=== PATIENT | male | born 1960 | race Caucasian/White ===

== ENCOUNTER → 2016-08-08 | Outpatient (CLI) | payer BC ==
[2016-08-08 14:42] LABS: CHLORIDE,CL 105 mmol/L (98-110); SODIUM,NA 137 mmol/L (136-146)
== END ==
LOC: MW.CHFP 13:59
PROVIDERS: ATTEND Emergency Medicine
DX: Z12.5 Encounter for screening for malignant neoplasm of prostate (principal); I10 Essential (primary) hypertension
CPT/HCPCS: 36415; 80053; 80061; G0103

== ENCOUNTER 2017-05-10 18:06 | Observation (INO) | payer BC ==
[2017-05-10] MEDS ORDERED: Diltiazem 25 MG/5 ML SDV IVPUSH ONE (19:08)
[2017-05-10 19:30] LABS: CHLORIDE,CL 104 mmol/L (98-110); SODIUM,NA 139 mmol/L (136-146)
[2017-05-10] MEDS ORDERED: Sodium Chloride 0.9% 1,000 ML IV ONE (19:36)
[2017-05-10] MEDS ORDERED: Potassium Chloride 20 MEQ Tab.ER PO ONE (19:59)
[2017-05-10] MEDS ORDERED: Magnesium Sulfate/Water 2 GM in Premix Bag 1 BAG IV ONE (19:59)
[2017-05-10] MEDS ORDERED: Ondansetron 4 MG/2 ML SDV IVPUSH PRN (20:09)
--- NOTE | 2017-05-10 20:15 | PCM.HP ---
H&P History of Present Illness - General Admit Problem/Dx: Admission Diagnosis/Problem Admission Diagnosis/Problem Tachycardia - History of Present Illness Initial Comments - Free Text/Narative: 57 yo male with pmh of hypertension who presented with complaint of palpitations. He reports having palpitations on and off for the past several years. Some months it occurs every day but does not last for very long. The palpitations that occurred tonight did not go away prompting him to come to the ED. In the ED he was noted to have a supraventricular tachycardia that was alternating with a normal sinus rhythm. He was given diltiazem IV and has since not gone back to SVT. He denies any shortness of breath or chest pain. - Related Data Allergies/Adverse Reactions: Allergies Allergy/AdvReac Type Severity Reaction Status Date / Time Sulfa (Sulfonamide Allergy Tachycardia Verified 05/10/17 18:27 Antibiotics) oranges Allergy Itching Uncoded 05/10/17 18:27 Home Medications: Home Meds Lisinopril 10 mg PO DAILY 05/27/14 [History] Magnesium 30 mg PO DAILY 05/27/14 [History] Potassium 99 mg PO BID 05/27/14 [History] Spironolactone [Aldactone] 25 mg PO DAILY 05/27/14 [History] Metoprolol Tartrate [Lopressor] 25 mg PO Q12HR #60 tablet 05/11/17 [Rx] Past Medical History Cardiovascular History: Reports: High Cholesterol, Hypertension Genitourinary History: Reports: Renal Calculus Musculoskeletal History: Reports: Back Pain, Chronic, Other (See Below) Other Musculoskeletal History: bulging disc to back - Infectious Disease History Infectious Disease History: Reports: Chicken Pox, Mumps - Past Surgical History Male Surgical History: Reports: Renal Calculus Musculoskeletal Surgical History: Reports: Shoulder Surgery Other Musculoskeletal Surgeries/Procedures:: right shoulder Social & Family History - Tobacco Use Smoking Status *Q: Never Smoker Second Hand Smoke Exposure: No - Caffeine Use Caffeine Use: Reports: Energy Drinks, Soda - Alcohol Use Days Per Week of Alcohol Use: 0 Number of Drinks Per Day: 1 Total Drinks Per Week: 0 - Recreational Drug Use Recreational Drug Use: No H&P Review of Systems - Review of Systems: Review Of Systems: ROS reveals no pertinent complaints other than HPI. Exam - Exam Exam: See Below - Vital Signs Vital Signs: Last Vital Signs Temp 37.6 C 05/10/17 19:55 Pulse 86 05/10/17 19:55 Resp 15 05/10/17 19:55 BP 154/80 H 05/10/17 19:55 Pulse Ox 96 05/10/17 19:55 Weight: 82.6 kg - Exam General: Alert, Oriented HEENT: Mucosa Moist & [place] Lungs: Clear to Auscultation, Normal Respiratory Effort Cardiovascular: Regular Rate, Regular Rhythm GI/Abdominal Exam: Soft, Non-Tender Extremities: Non-Tender, No Pedal Edema Skin: Warm, Dry, Intact Neurological: No: Focal Deficit - Patient Data Lab Results Last 24 hrs: Laboratory Results - last 24 hr 05/10/17 05/10/17 05/10/17 Range/Units 18:53 18:53 18:53 WBC 6.74 (4.0-11.0) K/uL RBC 5.04 (4.50-5.90) M/uL Hgb 15.3 (13.0-17.0) g/dL Hct 44.0 (38.0-50.0) % MCV 87.3 (80.0-98.0) fL MCH 30.4 (27.0-32.0) pg MCHC 34.8 (31.0-37.0) g/dL RDW Std Deviation 42.1 (28.0-62.0) fl RDW Coeff of Anita 13 (11.0-15.0) % Plt Count 217 (150-400) K/uL MPV 10.10 (7.40-12.00) fL Neut % (Auto) 75.8 (48.0-80.0) % Lymph % (Auto) 15.7 L (16.0-40.0) % [place] % (Auto) 7.9 (0.0-15.0) % Eos % (Auto) 0.3 (0.0-7.0) % Baso % (Auto) 0.3 (0.0-1.5) % Neut # (Auto) 5.1 (1.4-5.7) K/uL Lymph # (Auto) 1.1 (0.6-2.4) K/uL [place] # (Auto) 0.5 (0.0-0.8) K/uL Eos # (Auto) 0.0 (0.0-0.7) K/uL Baso # (Auto) 0.0 (0.0-0.1) K/uL Nucleated RBC % 0.0 /100WBC Nucleated RBCs # 0 K/uL INR 1.00 (0.86-1.11) Sodium 139 (136-146) mmol/L Potassium 3.8 (3.5-5.1) mmol/L Chloride 104 (98-110) mmol/L Carbon Dioxide 22 (21-31) mmol/L BUN 11 (6.0-23.0) mg/dL Creatinine 0.9 (0.6-1.5) mg/dL Est Cr Clr Drug Dosing 90.56 mL/min Estimated GFR (MDRD) > 60.0 ml/min Glucose 84 (60-110) mg/dL Calcium 9.4 (8.8-10.8) mg/dL Magnesium (1.5-2.3) mEq/L Total Bilirubin 1.3 (0.1-1.5) mg/dL AST 21 (5-40) IU/L ALT 24 (8-54) IU/L Alkaline Phosphatase 73 (40-150) Troponin I < 0.10 (0.0-0.29) NG/ML Total Protein 7.2 (6.0-8.0) g/dL Albumin 4.5 (3.5-5.0) g/dL Globulin 2.7 (2.0-3.5) g/dL Albumin/Globulin Ratio 1.7 (1.3-2.8) TSH 3rd Generation 1.70 (0.47-5.0) uIU/mL 05/10/17 Range/Units 18:53 WBC (4.0-11.0) K/uL RBC (4.50-5.90) M/uL Hgb (13.0-17.0) g/dL Hct (38.0-50.0) % MCV (80.0-98.0) fL MCH (27.0-32.0) pg MCHC (31.0-37.0) g/dL RDW Std Deviation (28.0-62.0) fl RDW Coeff of Anita (11.0-15.0) % Plt Count (150-400) K/uL MPV (7.40-12.00) fL Neut % (Auto) (48.0-80.0) % Lymph % (Auto) (16.0-40.0) % [place] % (Auto) (0.0-15.0) % Eos % (Auto) (0.0-7.0) % Baso % (Auto) (0.0-1.5) % Neut # (Auto) (1.4-5.7) K/uL Lymph # (Auto) (0.6-2.4) K/uL [place] # (Auto) (0.0-0.8) K/uL Eos # (Auto) (0.0-0.7) K/uL Baso # (Auto) (0.0-0.1) K/uL Nucleated RBC % /100WBC Nucleated RBCs # K/uL INR (0.86-1.11) Sodium (136-146) mmol/L Potassium (3.5-5.1) mmol/L Chloride (98-110) mmol/L Carbon Dioxide (21-31) mmol/L BUN (6.0-23.0) mg/dL Creatinine (0.6-1.5) mg/dL Est Cr Clr Drug Dosing mL/min Estimated GFR (MDRD) ml/min Glucose (60-110) mg/dL Calcium (8.8-10.8) mg/dL Magnesium 1.7 (1.5-2.3) mEq/L Total Bilirubin (0.1-1.5) mg/dL AST (5-40) IU/L ALT (8-54) IU/L Alkaline Phosphatase (40-150) Troponin I (0.0-0.29) NG/ML Total Protein (6.0-8.0) g/dL Albumin (3.5-5.0) g/dL Globulin (2.0-3.5) g/dL Albumin/Globulin Ratio (1.3-2.8) TSH 3rd Generation (0.47-5.0) uIU/mL Result Diagrams: 05/10/17 18:53 05/11/17 01:58 *Q Meaningful Use (ADM) - VTE *Q VTE Criteria *Q: - Stroke *Q Stroke Criteria *Q: - AMI *Q AMI Criteria *Q: Problem List Initiated/Reviewed/Updated: Yes Orders Last 24hrs: Active Orders 24 hr Category Date Time Status Patient Status [ADT] Stat ADT 05/10/17 19:51 Active Antiembolic Devices [RC] PER UNIT ROUTINE Care 05/10/17 20:09 Ordered EKG Documentation Completion [RC] STAT Care 05/10/17 18:39 Active EKG Documentation Completion [RC] STAT Care 05/10/17 19:22 Active Oxygen Therapy [RC] PRN Care 05/10/17 20:09 Ordered Up ad Shi [RC] ASDIRECTED Care 05/10/17 20:09 Ordered VTE/DVT Education [RC] PER UNIT ROUTINE Care 05/10/17 20:09 Ordered Vital Signs [RC] Q4H Care 05/10/17 20:09 Ordered Regular Diet [DIET] Diet 05/10/17 Breakfast Ordered BASIC METABOLIC PANEL,BMP [CHEM] AM Lab 05/11/17 05:11 Ordered MAGNESIUM [CHEM] AM Lab 05/11/17 05:11 Ordered Magnesium Sulfate/Water [Magnesium Sulfate 2 GM in Med 05/10/17 19:59 Ordered Water 50 ML] 2 gm Premix Bag 1 bag IV ONETIME Metoprolol Tartrate [Lopressor] Med 05/10/17 21:00 Ordered 25 mg PO Q12HR Ondansetron [Zofran] Med 05/10/17 20:09 Ordered 4 mg IVPUSH Q4H PRN Sodium Chloride 0.9% [Normal Saline] 1,000 ml Med 05/10/17 19:36 Active IV STAT Sequential Compression Device [OM.PC] Per Unit Routine Oth 05/10/17 20:09 Ordered Resuscitation Status Routine Resus Stat 05/10/17 20:09 Ordered Medication Orders Sodium Chloride (Normal Saline) 1,000 mls @ 999 mls/hr IV STAT ONE Stop: 05/10/17 20:36 Last Admin: 05/10/17 19:32 Dose: 999 mls/hr Magnesium Sulfate 2 gm/ Premix 50 mls @ 50 mls/hr IV ONETIME ONE Stop: 05/10/17 20:58 Metoprolol Tartrate (Lopressor) 25 mg PO Q12HR [facility] Assessment/Plan Comment:: 57 yo male admitted for SVT, he has since converted to normal sinus rhythm. He was monitored overnight on telemetry with no events. He is to be discharged home with the addition of metoprolol 25mg BID to his medications. He is to follow up with Dr. Bergman next week and a referral to Dr. Higgins was made.
[2017-05-10] MEDS: Metoprolol Tartrate 25 MG Tab PO SCH (21:57)
[2017-05-11 07:12] LABS: CHLORIDE,CL 107 mmol/L (98-110); SODIUM,NA 139 mmol/L (136-146)
[2017-05-11 09:49] VITALS: BP 137/61
[2017-05-11] MEDS: Metoprolol Tartrate 25 MG Tab PO SCH (09:50)
--- NOTE | 2017-05-11 21:48 | EDM.PDOC ---
ED HPI GENERAL MEDICAL PROBLEM - General Chief Complaint: Gastrointestinal Problem Stated Complaint: HEART FLUTTERING, INDIGESTION Time Seen by Provider: 05/10/17 18:50 Source of Information: Reports: Patient History Limitations: Reports: No Limitations - History of Present Illness INITIAL COMMENTS - FREE TEXT/NARRATIVE: HISTORY AND PHYSICAL: History of present illness: [Patient comes to the emergency room complaining of a sensation of indigestion. It's been coming and going for the past several days growing and in frequency and intensity. When he gets the sensation of indigestion he feels a fluttering sensation in his left neck and chest. Is worsened over the past several days. He states that he has had episodes of palpitations for the last year and his PCP Dr. Zimmer aware of this. They've not lasted very long until this point. Over the last couple of days and lasting longer and becoming more annoying to him. He denies chest pain shortness of breath and difficulty breathing. He has no abdominal pain nausea or vomiting. No pain in his back jaw and neck shoulder or down his arms. No pain or swelling to his lower legs.] Review of systems: As per history of present illness and below otherwise all systems reviewed and negative. Past medical history: As per history of present illness and as reviewed below otherwise noncontributory. Surgical history: As per history of present illness and as reviewed below otherwise noncontributory. Social history: No reported history of drug or alcohol abuse. Family history: As per history of present illness and as reviewed below otherwise noncontributory. Physical exam: HEENT: Atraumatic, normocephalic. Lungs: Clear to auscultation, breath sounds equal bilaterally. Heart: S1S2, rate is irregular. Abdomen: Soft, nondistended, nontender. Genitourinary: Deferred. Rectal: Deferred. Extremities: Atraumatic, negative for cords or calf pain. Cyanosis or edema to feet or lower legs. Neurovascular unremarkable. Neuro: Awake, alert, oriented. Motor and sensory unremarkable throughout. Exam nonfocal. Diagnostics: [CBC, CMP, EKG, chest x-ray, INR/PT/PTT, magnesium, troponin, TSH] Therapeutics: [Cardizem 10 mg IV] Impression: [SVT Hypertension] Plan: [Patient's labs are completely normal. EKG alternates between normal sinus and SVT. Cardizem completely converts patient. Patient's condition is reviewed with Dr. Bates who agrees to accept patient for observation.] Definitive disposition and diagnosis as appropriate pending reevaluation and review of above. - Related Data Allergies Allergy/AdvReac Type Severity Reaction Status Date / Time Sulfa (Sulfonamide Allergy Tachycardia Verified 05/10/17 18:27 Antibiotics) oranges Allergy Itching Uncoded 05/10/17 18:27 Home Meds: Home Meds Lisinopril 10 mg PO DAILY 05/27/14 [History] Magnesium 30 mg PO DAILY 05/27/14 [History] Potassium 99 mg PO BID 05/27/14 [History] Spironolactone [Aldactone] 25 mg PO DAILY 05/27/14 [History] Metoprolol Tartrate [Lopressor] 25 mg PO Q12HR #60 tablet 05/11/17 [Rx] Past Medical History Cardiovascular History: Reports: High Cholesterol, Hypertension Genitourinary History: Reports: Renal Calculus Musculoskeletal History: Reports: Back Pain, Chronic, Other (See Below) Other Musculoskeletal History: bulging disc to back - Infectious Disease History Infectious Disease History: Reports: Chicken Pox, Mumps - Past Surgical History Male Surgical History: Reports: Renal Calculus Musculoskeletal Surgical History: Reports: Shoulder Surgery Other Musculoskeletal Surgeries/Procedures:: right shoulder Social & Family History - Tobacco Use Smoking Status *Q: Never Smoker Second Hand Smoke Exposure: No - Caffeine Use Caffeine Use: Reports: Energy Drinks, Soda - Alcohol Use Days Per Week of Alcohol Use: 0 Number of Drinks Per Day: 1 Total Drinks Per Week: 0 - Recreational Drug Use Recreational Drug Use: No ED ROS GENERAL - Review of Systems Review Of Systems: ROS reveals no pertinent complaints other than HPI. ED EXAM, GENERAL - Physical Exam Exam: See Below GI/Abdominal: Soft, Non-Tender Extremities: Non-Tender, No Pedal Edema Course - Vital Signs Last Recorded V/S: Last Vital Signs Temp 98.5 F 05/11/17 09:00 Pulse 78 05/11/17 09:50 Resp 16 05/11/17 09:00 BP 137/61 05/11/17 09:50 Pulse Ox 96 05/11/17 09:00 - Orders/Labs/Meds Labs: Laboratory Tests 05/10/17 05/10/17 05/10/17 Range/Units 18:53 18:53 18:53 WBC 6.74 (4.0-11.0) K/uL RBC 5.04 (4.50-5.90) M/uL Hgb 15.3 (13.0-17.0) g/dL Hct 44.0 (38.0-50.0) % MCV 87.3 (80.0-98.0) fL MCH 30.4 (27.0-32.0) pg MCHC 34.8 (31.0-37.0) g/dL RDW Std Deviation 42.1 (28.0-62.0) fl RDW Coeff of Anita 13 (11.0-15.0) % Plt Count 217 (150-400) K/uL MPV 10.10 (7.40-12.00) fL Neut % (Auto) 75.8 (48.0-80.0) % Lymph % (Auto) 15.7 L (16.0-40.0) % [place] % (Auto) 7.9 (0.0-15.0) % Eos % (Auto) 0.3 (0.0-7.0) % Baso % (Auto) 0.3 (0.0-1.5) % Neut # (Auto) 5.1 (1.4-5.7) K/uL Lymph # (Auto) 1.1 (0.6-2.4) K/uL [place] # (Auto) 0.5 (0.0-0.8) K/uL Eos # (Auto) 0.0 (0.0-0.7) K/uL Baso # (Auto) 0.0 (0.0-0.1) K/uL Nucleated RBC % 0.0 /100WBC Nucleated RBCs # 0 K/uL INR 1.00 (0.86-1.11) Sodium 139 (136-146) mmol/L Potassium 3.8 (3.5-5.1) mmol/L Chloride 104 (98-110) mmol/L Carbon Dioxide 22 (21-31) mmol/L BUN 11 (6.0-23.0) mg/dL Creatinine 0.9 (0.6-1.5) mg/dL Est Cr Clr Drug Dosing 90.56 mL/min Estimated GFR (MDRD) > 60.0 ml/min Glucose 84 (60-110) mg/dL Calcium 9.4 (8.8-10.8) mg/dL Magnesium (1.5-2.3) mEq/L Total Bilirubin 1.3 (0.1-1.5) mg/dL AST 21 (5-40) IU/L ALT 24 (8-54) IU/L Alkaline Phosphatase 73 (40-150) Troponin I < 0.10 (0.0-0.29) NG/ML Total Protein 7.2 (6.0-8.0) g/dL Albumin 4.5 (3.5-5.0) g/dL Globulin 2.7 (2.0-3.5) g/dL Albumin/Globulin Ratio 1.7 (1.3-2.8) TSH 3rd Generation 1.70 (0.47-5.0) uIU/mL 05/10/17 Range/Units 18:53 WBC (4.0-11.0) K/uL RBC (4.50-5.90) M/uL Hgb (13.0-17.0) g/dL Hct (38.0-50.0) % MCV (80.0-98.0) fL MCH (27.0-32.0) pg MCHC (31.0-37.0) g/dL RDW Std Deviation (28.0-62.0) fl RDW Coeff of Anita (11.0-15.0) % Plt Count (150-400) K/uL MPV (7.40-12.00) fL Neut % (Auto) (48.0-80.0) % Lymph % (Auto) (16.0-40.0) % [place] % (Auto) (0.0-15.0) % Eos % (Auto) (0.0-7.0) % Baso % (Auto) (0.0-1.5) % Neut # (Auto) (1.4-5.7) K/uL Lymph # (Auto) (0.6-2.4) K/uL [place] # (Auto) (0.0-0.8) K/uL Eos # (Auto) (0.0-0.7) K/uL Baso # (Auto) (0.0-0.1) K/uL Nucleated RBC % /100WBC Nucleated RBCs # K/uL INR (0.86-1.11) Sodium (136-146) mmol/L Potassium (3.5-5.1) mmol/L Chloride (98-110) mmol/L Carbon Dioxide (21-31) mmol/L BUN (6.0-23.0) mg/dL Creatinine (0.6-1.5) mg/dL Est Cr Clr Drug Dosing mL/min Estimated GFR (MDRD) ml/min Glucose (60-110) mg/dL Calcium (8.8-10.8) mg/dL Magnesium 1.7 (1.5-2.3) mEq/L Total Bilirubin (0.1-1.5) mg/dL AST (5-40) IU/L ALT (8-54) IU/L Alkaline Phosphatase (40-150) Troponin I (0.0-0.29) NG/ML Total Protein (6.0-8.0) g/dL Albumin (3.5-5.0) g/dL Globulin (2.0-3.5) g/dL Albumin/Globulin Ratio (1.3-2.8) TSH 3rd Generation (0.47-5.0) uIU/mL Meds: Medications Discontinued Medications Generic Name Dose Route Start Last Admin Trade Name Freq PRN Reason Stop Dose Admin Diltiazem HCl 10 mg 05/10/17 19:08 05/10/17 19:27 Diltiazem IVPUSH 05/10/17 19:09 10 mg ONETIME ONE Administration Sodium Chloride 1,000 mls @ 999 mls/hr 05/10/17 19:36 05/10/17 19:32 Normal Saline IV 05/10/17 20:36 999 mls/hr STAT ONE Administration Magnesium Sulfate 2 gm/ Premix 50 mls @ 50 mls/hr 05/10/17 19:59 05/10/17 22: 14 IV 05/10/17 20:58 50 mls/hr ONETIME ONE Administration Metoprolol Tartrate 25 mg 05/10/17 21:00 05/11/17 09:50 Lopressor PO 25 mg Q12HR JOSE C Administration Ondansetron HCl 4 mg 05/10/17 20:09 Zofran IVPUSH Q4H PRN Nausea Potassium Chloride 40 meq 05/10/17 19:59 05/10/17 21:57 Klor-Con M20 PO 05/10/17 20:00 40 meq ONETIME ONE Administration Departure - Departure Time of Disposition: 19:51 Disposition: Admitted As Inpatient 66 Condition: Good Clinical Impression: Tachycardia
== END 2017-05-11 13:55 | disposition home or self-care (01) ==
LOC: MW.ED 18:06 → MW.MS 19:51
PROVIDERS: ADMIT Internal Medicine; ATTEND Internal Medicine
DX: I47.1 Supraventricular tachycardia (principal); I10 Essential (primary) hypertension; E78.00 Pure hypercholesterolemia, unspecified; Z88.2 Allergy status to sulfonamides; Z91.018 Allergy to other foods; Z79.899 Other long term (current) drug therapy; Z87.442 Personal history of urinary calculi
CPT/HCPCS: 36415; 80048; 80053; 83735; 84443; 84484; 85025; 85610; 93005; 96361; 96374; 99285; A9270; J3475; J3490; J7040; 96375; 99284; G0378

== ENCOUNTER 2020-03-15 10:32 | Day surgery (SDC) | payer BC ==
[~2020-03-15 10:32] MED LIST: Lactated Ringers 1,000 ML IV SCH; Lidocaine 2% 5 ML SDV ONE; Propofol 200 MG/20 ML SDV ONE; Sodium Chloride 0.9% 10 ML SDV IV PRN; Sodium Chloride 0.9% 10 ML Syringe FLUSH PRN; Sodium Chloride 0.9% 2.5 ML Syringe FLUSH PRN; fentaNYL 100 MCG/2 ML SDV ONE
--- NOTE | 2020-03-15 11:33 | PCM.PREANE ---
Preanesthetic Assessment - Anesthesia/Transfusion/Family Hx Anesthesia History: Prior Anesthesia Without Reaction Family History of Anesthesia Reaction: No Transfusion History: Prior Transfusion Without Reaction Intubation History: Unknown - Review of Systems General: No Symptoms Pulmonary: No Symptoms Cardiovascular: No Symptoms ( ) Neurological: No Symptoms Other: Reports: None - Physical Assessment Height: 5 ft 9 in Weight: 86.636 kg ASA Class: 2 Mental Status: Alert & Oriented x3 Airway Class: Mallampati = 2 Dentition: Reports: Normal Dentition, [place](s) (multiple upper and lower (about 8 total)) Thyro-Mental Finger Breadths: 3 Mouth Opening Finger Breadths: 3 ROM/Head Extension: Full Lungs: Clear to Auscultation, Normal Respiratory Effort Cardiovascular: Regular Rate, Regular Rhythm, Other (mitral valve murmer) - Allergies Allergies/Adverse Reactions: Allergies Allergy/AdvReac Type Severity Reaction Status Date / Time Sulfa (Sulfonamide Allergy Tachycardia Verified 03/09/20 12:12 Antibiotics) oranges Allergy Itching Uncoded 03/09/20 12:12 - Blood Blood Available: No - Anesthesia Plan Pre-Op Medication Ordered: None - Acknowledgements Anesthesia Type Planned: MAC Pt an Appropriate Candidate for the Planned Anesthesia: Yes Alternatives and Risks of Anesthesia Discussed w Pt/Guardian: Yes Pt/Guardian Understands and Agrees with Anesthesia Plan: Yes PreAnesthesia Questionnaire HEENT History: Reports: Other (See Below) Other HEENT History: wears glasses Cardiovascular History: Reports: Heart Murmur (mitral valve regurgitation on cardiac ECHO in ), High Cholesterol, Hypertension, Other (See Below) (paroxysmal SVT controlled with metoprolol, short episode 10-15 sec. almost daily x1) Respiratory History: Reports: None Gastrointestinal History: Reports: Diverticulosis, GERD Other Gastrointestinal History: hx diverticulitis Genitourinary History: Reports: Renal Calculus Musculoskeletal History: Reports: Arthritis, Back Pain, Chronic, Other (See Below) Other Musculoskeletal History: bulging disc to back Neurological History: Reports: None Psychiatric History: Reports: None Endocrine/Metabolic History: Reports: None Hematologic History: Reports: Blood Transfusion(s) Immunologic History: Reports: None Oncologic (Cancer) History: Reports: None Dermatologic History: Reports: None - Infectious Disease History Infectious Disease History: Reports: Chicken Pox, Mumps - Past Surgical History GI Surgical History: Reports: Colonoscopy ( in [facility]) Male Surgical History: Reports: Renal Calculus, Other (See Below) (exc. of spermatocele with epididimectomy) Other Musculoskeletal Surgeries/Procedures:: right shoulder - SUBSTANCE USE Tobacco Use Status *Q: Never Tobacco User - HOME MEDS Home Medications: Home Meds Lisinopril 10 mg PO DAILY 05/27/14 [History] Spironolactone [Aldactone] 25 mg PO DAILY 05/27/14 [History] Aspirin [Adult Aspirin Regimen] 81 mg PO DAILY 03/09/20 [History] Cyanocobalamin (Vitamin B-12) [Vitamin B12] 2,500 mcg PO DAILY 03/09/20 [History] Hydrocortisone Acetate [Anusol-Hc] 1 supp RECTAL ASDIRECTED PRN 03/09/20 [History] Magnesium Oxide 400 mg PO BID 03/09/20 [History] Metoprolol Tartrate [Lopressor] 25 mg PO DAILY 03/09/20 [History] Omeprazole 20 mg PO DAILY PRN 03/09/20 [History] Potassium Chloride 20 meq PO BID 03/09/20 [History] Pravastatin [Pravachol] 20 mg PO DAILY 03/09/20 [History] - CURRENT (IN HOUSE) MEDS Current Meds: Current Medications Lactated Ringer's (Ringers, Lactated) 1,000 mls @ 125 mls/hr IV ASDIRECTED JOSE C Sodium Chloride (Saline Flush) 10 ml FLUSH ASDIRECTED PRN PRN Reason: Keep Vein Open Sodium Chloride (Saline Flush) 2.5 ml FLUSH ASDIRECTED PRN PRN Reason: Keep Vein Open Sodium Chloride (Saline Flush) 10 ml FLUSH ASDIRECTED PRN PRN Reason: Keep Vein Open Sodium Chloride (Saline Flush) 2.5 ml FLUSH ASDIRECTED PRN PRN Reason: Keep Vein Open Sodium Chloride (Normal Saline) 10 ml IV ASDIRECTED PRN PRN Reason: IV Use Discontinued Medications Fentanyl (Sublimaze) Confirm Administered Dose 100 mcg .ROUTE .STK-MED ONE Stop: 03/15/20 10:29 Lidocaine (Xylocaine-Mpf 2%) Confirm Administered Dose 5 ml .ROUTE .STK-MED ONE Stop: 03/15/20 10:29 Propofol (Diprivan 20 Ml) Confirm Administered Dose 200 mg .ROUTE .STK-MED ONE Stop: 03/15/20 10:29
[2020-03-15] MEDS ORDERED: Midazolam 1 MG/ML 2 ML SDV ONE (11:38)
[2020-03-15] MEDS ORDERED: Glycopyrrolate 0.2 MG/ML SDV ONE (11:38)
[2020-03-15] MEDS ORDERED: Propofol 200 MG/20 ML SDV ONE (11:39)
--- NOTE | 2020-03-15 12:07 | PCM.POSTAN ---
POST ANESTHESIA ASSESSMENT - MENTAL STATUS Mental Status: Alert, Oriented - VITAL SIGNS Vital Signs: Last Vital Signs Temp 37.0 C 03/15/20 11:49 Pulse 63 03/15/20 12:05 Resp 10 L 03/15/20 12:05 BP 122/67 03/15/20 12:05 Pulse Ox 95 03/15/20 12:05 - RESPIRATORY Respiratory Status: Respiratory Rate WNL, Airway Patent, O2 Saturation Stable - CARDIOVASCULAR CV Status: Pulse Rate WNL, Blood Pressure Stable - GASTROINTESTINAL GI Status: No Symptoms - PAIN Pain Score: 0 - POST OP HYDRATION Hydration Status: Adequate & Stable - OBSERVATIONS Free Text/Narrative:: No anesthesia problems
--- NOTE | 2020-03-15 12:31 | PCM48HPAN ---
Post Anesthesia Note - EVALUATION WITHIN 48HRS OF ANESTHETIC Vital Signs in Normal Range: Yes Patient Participated in Evaluation: Yes Respiratory Function Stable: Yes Airway Patent: Yes Cardiovascular Function Stable: Yes Hydration Status Stable: Yes Pain Control Satisfactory: Yes Nausea and Vomiting Control Satisfactory: Yes Mental Status Recovered: Yes Vital Signs: Last Vital Signs Temp 37.0 C 03/15/20 11:49 Pulse 63 03/15/20 12:05 Resp 10 L 03/15/20 12:05 BP 122/67 03/15/20 12:05 Pulse Ox 95 03/15/20 12:05 - COMMENTS/OBSERVATIONS Free Text/Narrative:: No anesthesia problems
--- NOTE | 2020-03-15 13:21 | PCM.OPNOTE ---
- General Post-Op/Procedure Note Date of Surgery/Procedure: 03/15/20 Operative Procedure(s): Diagnostic colonoscopy Findings: Mild inflammation along the sigmoid colon in association with diverticulosis Pre Op Diagnosis: Change in bowel habits Post-Op Diagnosis: Diverticulosis, non-specific colitis Anesthesia Technique: MAC Primary Surgeon: Myriam Lozano Condition: Good Free Text/Narrative:: Intake & Output 03/14/20 03/15/20 03/15/20 22:59 06:59 14:59 Intake Total 700 Balance 700
[2020-03-15 14:41] VITALS: BP 120/77; PULSE 60
--- NOTE | 2020-03-16 10:57 | OR ---
SURGEON: MYRIAM LOZANO MD DATE OF PROCEDURE: 03/15/2020 PREOPERATIVE DIAGNOSIS: Change in bowel habits. POSTOPERATIVE DIAGNOSES: 1. Diverticulosis. 2. Mild colitis. PROCEDURE PERFORMED: Diagnostic colonoscopy. PRIMARY SURGEON: Myriam Lozano MD ANESTHESIA: MAC. INSTRUMENT USED: Olympus colonoscope. EXTENT OF EXAM: To the cecum. PREPARATION: Good. LIMITATIONS: None. INDICATIONS FOR EXAMINATION: The patient is a 60-year-old male with known diverticulosis who presented to my clinic with a change in bowel habits. He had undergone a CT scan, which showed colonic diverticulosis without any evidence of diverticulitis. There was concern for asymmetric thickening of the rectum, which the radiologist mentioned could represent inflammatory changes or neoplasm. The patient underwent stool cultures, which were negative. The patient and I discussed the need for diagnostic colonoscopy. I explained the procedure, expected perioperative course, and risks. He verbalized understanding and wishes to proceed. PROCEDURE IN DETAIL: The patient was brought into the endoscopy suite and placed in a left lateral decubitus position. A time-out was completed verifying the patient's name, age, date of , allergies, and procedure to be performed. Monitored anesthesia care was induced and continuous oxygen was provided via nasal cannula throughout the procedure. After adequate sedation was achieved, a digital rectal exam was performed. This exam was within normal limits. A well-lubricated colonoscope was inserted in the rectum and advanced under direct visualization to the level of the cecum. The cecum was identified by both visual and anatomic landmarks. A photograph was taken of the cecal cap as well as with the scope retroflexed within the cecum. The scope was then fully withdrawn while examining the color, texture, anatomy, and integrity of the mucosa from the cecum to the anal canal. The patient was noted to have sigmoid diverticulosis. The mucosa between these diverticula did appear slightly injected. A biopsy was taken of one of these areas and sent to pathology, labeled as sigmoid colon biopsy. The scope was then brought into the rectum and retroflexed to allow visualization of the anal canal opening. No abnormalities were found in the rectum and the retroflexed view appeared normal as well. The scope was removed and the procedure was terminated. The cecum to anus time was 7 minutes. The patient tolerated the procedure well and was transferred to the PACU in stable condition. ENDOSCOPIC DIAGNOSES: 1. Diverticulosis. 2. Mild colitis. RECOMMENDATIONS: The patient and I visited in the postoperative care area. The patient may have had some nonspecific colitis prior to this scope. We will follow up on the biopsy results and visit with the patient more about this in clinic. At this time, the inflammation that I saw was very mild, and I do not feel he needs to be on antibiotics at this point in time. NAVI / DENNIS /[id number]
== END 2020-03-15 13:15 | disposition home or self-care (01) ==
LOC: MW.SDS 10:32
PROVIDERS: ATTEND Surgery
DX: K57.30 Diverticulosis of large intestine without perforation or abscess without bleeding (principal); K52.9 Noninfective gastroenteritis and colitis, unspecified; E78.00 Pure hypercholesterolemia, unspecified; I10 Essential (primary) hypertension; Z88.2 Allergy status to sulfonamides; Z88.1 Allergy status to other antibiotic agents; Z91.018 Allergy to other foods; Z79.899 Other long term (current) drug therapy; Z98.890 Other specified postprocedural states
CPT/HCPCS: 45380; J2001; J2250; J2704; J3010; J3490; J7120; 00811; 88305

== ENCOUNTER 2020-05-23 00:25 | Emergency (ER) | payer BC ==
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
[2020-05-23 01:04] VITALS: PULSE 55
[2020-05-23 01:37] VITALS: BP 122/65
== END 2020-05-23 01:10 | disposition home or self-care (01) ==
LOC: MW.ED 00:25
DX: I10 Essential (primary) hypertension (principal); R00.1 Bradycardia, unspecified; E78.00 Pure hypercholesterolemia, unspecified; K21.9 Gastro-esophageal reflux disease without esophagitis; M19.90 Unspecified osteoarthritis, unspecified site; Z88.2 Allergy status to sulfonamides; Z91.018 Allergy to other foods; Z79.899 Other long term (current) drug therapy; Z79.82 Long term (current) use of aspirin
CPT/HCPCS: 99282; 99283

== ENCOUNTER 2021-03-11 19:48 | Emergency (ER) | payer BC ==
[2021-03-11] MEDS ORDERED: Sodium Chloride 0.9% 2.5 ML Syringe FLUSH PRN (19:57)
[2021-03-11] MEDS ORDERED: Sodium Chloride 0.9% 10 ML Syringe FLUSH PRN (19:57)
[2021-03-11] MEDS ORDERED: Lactated Ringers 1,000 ML IV ONE (19:57)
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
[2021-03-11 20:32] LABS: BLOOD UREA NITROGEN,BUN 14 mg/dL (7.0-18.0); CARBON DIOXIDE,CO2 28.8 mmol/L (21.0-32.0); CHLORIDE,CL 105 mmol/L (98-107); GLUCOSE RANDOM 143 mg/dL (74-106); POTASSIUM,K 3.3 mmol/L (3.5-5.1); SODIUM,NA 139 mmol/L (136-148)
--- NOTE | 2021-03-11 21:09 | CR ---
INDICATION: Chest pain TECHNIQUE: Chest radiograph 1 view COMPARISON: 11/15/2020 FINDINGS: The sensitivity and specificity of the exam are moderately limited by the patient`s body habitus. Mediastinum: The mediastinum is normal in appearance. The heart silhouette is normal in size and morphology. Lung: Both lungs are unremarkable in appearance with small lung volumes. No sign of pleural effusion seen. No pneumothorax is identified. Bone and Soft tissue: Unremarkable for age. A right shoulder arthroplasty is partially seen. IMPRESSION: 1. No acute cardiopulmonary disease is seen. Dictated by: Dino Corona MD @ 03/11/2021 21:06:36 (Electronically Signed)
[2021-03-11 21:58] VITALS: BP 136/76; PULSE 76
== END 2021-03-11 21:58 | disposition home or self-care (01) ==
LOC: MW.ED 19:48
DX: R00.2 Palpitations (principal); E78.00 Pure hypercholesterolemia, unspecified; I10 Essential (primary) hypertension; K21.9 Gastro-esophageal reflux disease without esophagitis; Z88.2 Allergy status to sulfonamides; Z91.018 Allergy to other foods; Z88.1 Allergy status to other antibiotic agents; Z79.82 Long term (current) use of aspirin; Z79.01 Long term (current) use of anticoagulants; Z79.899 Other long term (current) drug therapy; Z20.822 Contact with and (suspected) exposure to COVID-19
CPT/HCPCS: 36415; 71045; 80053; 84484; 85025; 87635; 93005; 99285; J7120; U0002

== ENCOUNTER 2021-05-20 21:18 | Emergency (ER) | payer BC ==
[2021-05-20] MEDS ORDERED: diphenhydrAMINE 50 MG Cap PO ONE (22:10)
[2021-05-20] MEDS ORDERED: predniSONE 20 MG Tab PO ONE (22:10)
[2021-05-21 04:38] VITALS: BP 120/84; PULSE 64
== END 2021-05-20 22:40 | disposition home or self-care (01) ==
LOC: MW.ED 21:18
DX: D69.2 Other nonthrombocytopenic purpura (principal); T50.995A Adverse effect of other drugs, medicaments and biological substances, initial encounter; E78.00 Pure hypercholesterolemia, unspecified; I10 Essential (primary) hypertension; K21.9 Gastro-esophageal reflux disease without esophagitis; Z88.2 Allergy status to sulfonamides; Z88.1 Allergy status to other antibiotic agents; Z91.018 Allergy to other foods; Z79.82 Long term (current) use of aspirin; Z79.899 Other long term (current) drug therapy
CPT/HCPCS: 99282

== ENCOUNTER 2022-03-13 14:32 | Emergency (ER) | payer BC ==
[2022-03-13] MEDS ORDERED: Metoprolol Tartrate 25 MG Tab PO ONE (16:51)
[2022-03-13 17:24] LABS: POTASSIUM,K 4.5 mmol/L (3.5-5.1)
[2022-03-13 17:53] VITALS: BP 153/80; PULSE 61
== END 2022-03-13 17:54 | disposition home or self-care (01) ==
LOC: MW.ED 14:32
DX: I10 Essential (primary) hypertension (principal); E78.00 Pure hypercholesterolemia, unspecified; K21.9 Gastro-esophageal reflux disease without esophagitis; M19.90 Unspecified osteoarthritis, unspecified site; Z88.2 Allergy status to sulfonamides; Z91.018 Allergy to other foods; Z79.82 Long term (current) use of aspirin; Z79.899 Other long term (current) drug therapy
CPT/HCPCS: 36415; 80053; 81003; 85025; 93005; 99283

== ENCOUNTER 2023-10-07 11:17 | Emergency (ER) | payer BC ==
[2023-10-07] MEDS: Bacitracin Oint 1 GM U/D Packet TOP ONE (13:37)
[2023-10-07 13:55] VITALS: BP 130/80; PULSE 64
== END 2023-10-07 13:54 | disposition home or self-care (01) ==
LOC: MW.ED 11:17
DX: S00.03XA Contusion of scalp, initial encounter (principal); I10 Essential (primary) hypertension; E78.00 Pure hypercholesterolemia, unspecified; K21.9 Gastro-esophageal reflux disease without esophagitis; Z88.2 Allergy status to sulfonamides; Z91.041 Radiographic dye allergy status; Z91.018 Allergy to other foods; Z79.82 Long term (current) use of aspirin; Z79.899 Other long term (current) drug therapy; W22.8XXA Striking against or struck by other objects, initial encounter; Y93.01 Activity, walking, marching and hiking
CPT/HCPCS: 70450; 70450-26; 72125; 72125-26; 99282; 99283

== ENCOUNTER 2024-06-04 03:01 | Emergency (ER) | payer BC ==
[2024-06-04] MEDS: Sodium Chloride 0.9% 1,000 ML IV ONE (03:33)
[2024-06-04 03:42] LABS: BASOPHILS ABSOLUTE AUTO 0.04 K/uL (0.00-0.20); BASOPHILS PERCENT AUTO 0.7 % (0.0-1.0); EOSINOPHILS ABSOLUTE AUTO 0.06 K/uL (0.00-0.45); EOSINOPHILS PERCENT AUTO 1.1 % (0.0-6.0); HEMATOCRIT 43.7 % (42.0-52.0); IMMATURE GRAN ABSOLUTE AUTO 0.01 K/uL (0.00-0.05); IMMATURE GRAN PERCENT AUTO 0.2 % (0.0-0.4); LYMPHOCYTES ABSOLUTE AUTO 1.33 K/uL (1.00-4.80); LYMPHOCYTES PERCENT AUTO 23.8 % (24.0-44.0); MEAN CORPUSCULAR HEMOGLOBIN 29.8 pg (28.0-32.0); MEAN CORPUSCULAR HGB CONC 34.3 g/dL (32.0-36.0); MEAN CORPUSCULAR VOLUME 86.7 fL (83.0-99.0); MEAN PLATELET VOLUME 10.8 fL (9.4-12.4); MONOCYTES ABSOLUTE AUTO 0.66 K/uL (0.00-0.80); MONOCYTES PERCENT AUTO 11.8 % (0.0-8.0); NEUTROPHILS PERCENT AUTO 62.4 % (41.0-71.0); PLATELET COUNT,PLT 191 K/uL (150-400); RED BLOOD CELL COUNT 5.04 M/uL (4.52-5.90)
[2024-06-04 04:05] LABS: A/G RATIO 1.3 (0.9-1.6); ALBUMIN 3.9 g/dL (3.4-5.0); BILIRUBIN TOTAL 0.8 mg/dL (0.2-1.0); C-REACTIVE PROTEIN 0.33 mg/dL (<0.3); CALCIUM 8.8 mg/dL (8.5-10.1); CARBON DIOXIDE,CO2 25.2 mmol/L (21.0-32.0); EST CRCL DRUG DOSING (CG) 72.2 mL/min; MAGNESIUM 2.2 mg/dL (1.8-2.4); POTASSIUM,K 4.1 mmol/L (3.5-5.1); PROTEIN TOTAL,TP 6.9 g/dL (6.4-8.2)
[2024-06-04 04:41] LABS: APPEARANCE,URINE CLEAR
[2024-06-04 04:42] LABS: BILIRUBIN,URINE NEGATIVE (NEGATIVE); COLOR,URINE YELLOW; GLUCOSE,URINE NEGATIVE (NEGATIVE); KETONES,URINE 15 mg/dL (NEGATIVE); LEUKOCYTE ESTERASE,URINE NEGATIVE (NEGATIVE); NITRITE,URINE NEGATIVE (NEGATIVE); OCCULT BLOOD,URINE NEGATIVE (NEGATIVE); PH,URINE 6.5 (5.0-8.0); PROTEIN,URINE NEGATIVE (NEGATIVE); UROBILINOGEN,URINE 0.2 EU/dL (<2.0)
[2024-06-04 04:47] LABS: AMPHETAMINES SCREEN, URINE NEGATIVE (CUTOFF=500); BARBITURATE SCREEN,URINE NEGATIVE (CUTOFF=200); BENZODIAZEPINES SCREEN,URINE NEGATIVE (CUTOFF=150); BUPRENORPHINE SCREEN,URINE NEGATIVE (CUTOFF=10); METHADONE SCREEN, URINE NEGATIVE (CUTOFF=200); METHAMPHETAMINES SCREEN, URINE NEGATIVE (CUTOFF=500); OXYCODONE SCREEN,URINE NEGATIVE (CUT0FF=100); PCP SCREEN,URINE NEGATIVE (CUTOFF=25); THC SCREEN,URINE 20 NG/ML NEGATIVE (CUTOFF=50)
[2024-06-04 05:41] VITALS: BP 145/75; PULSE 52
== END 2024-06-04 05:32 | disposition home or self-care (01) ==
LOC: MW.ED 03:01
DX: R42 Dizziness and giddiness (principal); R20.8 Other disturbances of skin sensation; E86.0 Dehydration; T40.425A Adverse effect of tramadol, initial encounter; Z98.890 Other specified postprocedural states; I10 Essential (primary) hypertension; E78.00 Pure hypercholesterolemia, unspecified; K21.9 Gastro-esophageal reflux disease without esophagitis; M19.90 Unspecified osteoarthritis, unspecified site; Z88.2 Allergy status to sulfonamides; Z88.8 Allergy status to other drugs, medicaments and biological substances; Z91.018 Allergy to other foods; Z91.041 Radiographic dye allergy status; Z79.82 Long term (current) use of aspirin; Z79.899 Other long term (current) drug therapy
CPT/HCPCS: 36415; 71045; 80053; 80305; 81003; 83735; 85025; 85652; 86140; 93005; 96360; 99284; J7030

== ENCOUNTER 2025-03-11 06:05 | Emergency (ER) | payer MEDICARE, BC ==
[2025-03-11] MEDS ORDERED: Sodium Chloride 0.9% 2.5 ML Syringe FLUSH PRN (06:07)
[2025-03-11] MEDS ORDERED: Sodium Chloride 0.9% 10 ML Syringe FLUSH PRN (06:07)
[2025-03-11 06:23] LABS: BASOPHILS ABSOLUTE AUTO 0.05 K/uL (0.00-0.20); BASOPHILS PERCENT AUTO 0.6 % (0.0-1.0); EOSINOPHILS ABSOLUTE AUTO 0.09 K/uL (0.00-0.45); EOSINOPHILS PERCENT AUTO 1.0 % (0.0-6.0); IMMATURE GRAN ABSOLUTE AUTO 0.03 K/uL (0.00-0.05); IMMATURE GRAN PERCENT AUTO 0.3 % (0.0-0.4); LYMPHOCYTES ABSOLUTE AUTO 1.51 K/uL (1.00-4.80); LYMPHOCYTES PERCENT AUTO 16.6 % (24.0-44.0); MEAN PLATELET VOLUME 10.1 fL (9.4-12.4); MONOCYTES ABSOLUTE AUTO 0.79 K/uL (0.00-0.80); MONOCYTES PERCENT AUTO 8.7 % (0.0-8.0); NEUTROPHILS ABSOLUTE AUTO 6.62 K/uL (1.80-7.70); NEUTROPHILS PERCENT AUTO 72.8 % (41.0-71.0); NRBC ABSOLUTE 0.00 K/uL (0.00-0.02); NRBC PERCENT 0.0 /100WBC (0.0-0.2); PLATELET COUNT,PLT 279 K/uL (150-400); RED BLOOD CELL COUNT 4.84 M/uL (4.52-5.90); WHITE BLOOD CELL COUNT,WBC 9.09 K/uL (3.9-11.3)
[2025-03-11 06:43] LABS: A/G RATIO 1.0 (0.9-1.6); ALANINE AMINOTRANSFERASE,ALT 19.0 IU/L (14-63); ASPARTATE AMNIOTRANSFERASE,AST 19.0 IU/L (15-37); BILIRUBIN TOTAL 1.0 mg/dL (0.2-1.0); BLOOD UREA NITROGEN,BUN 15.0 mg/dL (7.0-18.0); CARBON DIOXIDE,CO2 26.0 mmol/L (21.0-32.0); CHLORIDE,CL 101.0 mmol/L (98-107); CREATININE 1.0 mg/dL (0.8-1.3); EST CRCL DRUG DOSING (CG) 71.25 mL/min; GLUCOSE RANDOM 91.0 mg/dL (74-106); POTASSIUM,K 3.9 mmol/L (3.5-5.1); PROTEIN TOTAL,TP 7.5 g/dL (6.4-8.2); SODIUM,NA 137.0 mmol/L (136-148)
[2025-03-11 06:45] LABS: ESTIMATED GFR 84.0 mL/min (>60)
[2025-03-11] MEDS: Ketorolac 30 MG/ML SDV IVPUSH ONE (07:01)
[2025-03-11] MEDS: Ondansetron 4 MG/2 ML SDV IVPUSH ONE (07:01)
[2025-03-11 07:26] VITALS: BP 148/69; PULSE 64
[2025-03-11 07:29] LABS: APPEARANCE,URINE CLEAR; GLUCOSE,URINE NEGATIVE (NEGATIVE); OCCULT BLOOD,URINE NEGATIVE (NEGATIVE)
== END 2025-03-11 08:04 | disposition home or self-care (01) ==
LOC: MW.ED 06:05
DX: A08.4 Viral intestinal infection, unspecified (principal); I10 Essential (primary) hypertension; E78.00 Pure hypercholesterolemia, unspecified; K21.9 Gastro-esophageal reflux disease without esophagitis; Z88.2 Allergy status to sulfonamides; Z88.8 Allergy status to other drugs, medicaments and biological substances; Z91.018 Allergy to other foods; Z91.041 Radiographic dye allergy status; Z79.899 Other long term (current) drug therapy; Z79.82 Long term (current) use of aspirin; Z96.641 Presence of right artificial hip joint
CPT/HCPCS: 36415; 74018; 80053; 81003; 83690; 85025; 96361; 96374; 99284; J7030; 99283; J1885

== ENCOUNTER 2025-03-25 00:35 | Emergency (ER) | payer MEDICARE, BC ==
[2025-03-25 00:48] VITALS: BP 192/93; PULSE 70
== END 2025-03-25 00:59 | disposition home or self-care (01) ==
LOC: MW.ED 00:35
DX: K64.9 Unspecified hemorrhoids (principal); I10 Essential (primary) hypertension; E78.00 Pure hypercholesterolemia, unspecified; K21.9 Gastro-esophageal reflux disease without esophagitis; Z88.2 Allergy status to sulfonamides; Z91.041 Radiographic dye allergy status; Z79.82 Long term (current) use of aspirin
CPT/HCPCS: 99282; 99283